=== PATIENT | female | born 1965 | race Caucasian/White ===

== ENCOUNTER 2017-01-01 16:25 | Emergency (ER) | payer SELFPAY ==
--- NOTE | 2017-01-01 16:53 | ER Document Report ---
ED General <BONY AMBRIZ - Last Filed: 01/01/17 23:18> - General Mode of Arrival: Medic Information source: Patient <CUBAMOHIT MANRIQUEZANDA - Last Filed: 02/18/17 10:14> - General Chief Complaint: General Weakness Stated Complaint: WEAKNESS Time Seen by Provider: 01/01/17 16:37 Notes: Patient is a 51-year-old female with a history of diabetes, hypertension, COPD, high cholesterol who presents to the ER today for "3 weeks" weakness. Patient states that she does not have any teeth that she cannot eat. She does state that she has been drinking Ensure and Gatorade, but does not drink a lot of it because she "does not like it." Patient does not have insurance and cannot get in with a dentist to get dentures. She denies any fever, chills nausea, vomiting, abdominal pain, chest pain, shortness of breath, wheezing. She denies any history of heart attack or stroke. He does have a primary care provider that prescribes her medications. She does admit to some diarrhea,"off and on." (SHANNON LABOY) - Related Data Allergies/Adverse Reactions: Penicillins Allergy (Unknown, Verified 01/01/17 20:01) Past Medical History - General Information source: Patient - Social History Smoking Status: Former Smoker Family History: Reviewed & Not Pertinent <SHANNON LABOY - Last Filed: 02/18/17 10:14> Review of Systems - Review of Systems Constitutional: See HPI EENT: No symptoms reported Cardiovascular: See HPI Respiratory: See HPI Gastrointestinal: No symptoms reported Genitourinary: No symptoms reported Female Genitourinary: No symptoms reported Musculoskeletal: No symptoms reported Skin: No symptoms reported Hematologic/Lymphatic: No symptoms reported Neurological/Psychological: No symptoms reported <SHANNON LABOY - Last Filed: 02/18/17 10:14> Physical Exam <BONY AMBRIZ - Last Filed: 01/01/17 23:18> <SHANNON LABOY - Last Filed: 02/18/17 10:14> - Vital signs Vitals: Pulse Ox 100 01/01/17 16:35 - Notes Notes: PHYSICAL EXAMINATION: GENERAL: Chronically ill-appearing, but in no acute distress. HEAD: Atraumatic, normocephalic. EYES: Pupils equal round and reactive to light, extraocular movements intact, sclera anicteric, conjunctiva are normal. ENT: ear canals without erythema or foreign body, TMs pearly landry with good bony landmarks, nares patent, oropharynx clear without exudates. Moist mucous membranes. NECK: Normal range of motion, supple without lymphadenopathy LUNGS: CTAB and equal. No wheezes rales or rhonchi. HEART: Regular rate and rhythm without murmurs ABDOMEN: Soft, no tenderness. No guarding, no rebound BACK: no vertebral tenderness, normal ROM GI/: no CVA tenderness EXTREMITIES: Normal range of motion, no pitting edema. No cyanosis. NEUROLOGICAL: Cranial nerves grossly intact. Normal sensory/motor exams. PSYCH: Normal mood, normal affect. SKIN: Warm, Dry, normal turgor, no rashes or lesions noted (SHANNON LABOY) Course - Laboratory Result Diagrams: 01/01/17 16:55 01/01/17 19:53 <BONY AMBRIZ - Last Filed: 01/01/17 23:18> - Laboratory Result Diagrams: 01/01/17 16:55 01/01/17 19:53 <SHANNON LABOY - Last Filed: 02/18/17 10:14> - Re-evaluation Re-evalutation: 01/01/17 On repeat chemistry sodium improved, bicarbonate improved. Urinalysis obtained and is completely unremarkable. Patient has only borderline tachycardia now, significantly improved. Patient was able to get up, she is still mildly unsteady on her feet, however this is not new for her. Patient actually gets around in a modified wheelchair at home the majority of the time. I did speak to and patient at length. states concerns of recent decline with increased weakness, decreased eating, and overall increased amount of care needed. Patient is never alone, either states her sister, brother, or . They state that they are prepared to go home but may need some assistance and direction on how to better care for the patient. cytology laboratory manager consult was placed. They state satisfaction with this plan. Patient is very eager to go home. She denies any current complaints. She states she feels good now. Discussed return precautions, patient and state understanding and agreement. (BONY AMBRIZ) 01/01/17 19:09 Patient has a mildly elevated white blood cell count, 13.3, patient's sodium is low, 125, I have no labs to compare this with. Patient was very tachycardic when EMS picked her up, up 238 bpm, she has come down to 104 bpm here with 2 L of fluids. 1 L of fluid, the third, is still going and then after that we will redraw to check her sodium. Care has been handed over to Bony Ambriz PA-C to follow up on that and discharge her home if that has increased as discussed with Dr. Iqbal. She has Been given information for the free dental clinic in [facility] and states that she will go there. 01/01/17 19:10 (SHANNON LABOY) - Vital Signs Vital signs: Temp Pulse Resp BP Pulse Ox 98.6 F 12 138/77 H 100 01/01/17 16:49 01/01/17 21:01 01/01/17 21:01 01/01/17 21:01 - Laboratory Laboratory results interpreted by me: 01/01/17 01/01/17 01/01/17 16:55 16:55 19:53 WBC 13.3 H RBC 3.33 L Hgb 10.6 L Hct 32.8 L MCV 98 H RDW 14.6 H Seg Neutrophils % 81.7 H Lymphocytes % 10.7 L Absolute Neutrophils 10.9 H Sodium 125.4 L 131.6 L Chloride 97 L Carbon Dioxide 20 L 21 L Creatinine 0.50 L 0.47 L Glucose 203 H 124 H Calcium 8.0 L 8.2 L AST 13 L Alkaline Phosphatase 133 H 139 H Creatine Kinase 25 L Total Protein 5.4 L 5.8 L Albumin 2.8 L 3.0 L Urine Glucose (UA) 01/01/17 20:12 WBC RBC Hgb Hct MCV RDW Seg Neutrophils % Lymphocytes % Absolute Neutrophils Sodium Chloride Carbon Dioxide Creatinine Glucose Calcium AST Alkaline Phosphatase Creatine Kinase Total Protein Albumin Urine Glucose (UA) 50 H Discharge <BONY AMBRIZ - Last Filed: 01/01/17 23:18> <SHANNON LABOY - Last Filed: 02/18/17 10:14> - Discharge Clinical Impression: Malnourished, Poor dentition, Hyponatremia Condition: Stable Disposition: HOME, SELF-CARE Additional Instructions: Hyponatremia has been treated here tonight. Follow up with Primary care for additional monitoring of this. No other concerning abnormalities were found tonight. We have a keycase assembler consult placed - you will be contacted to assess needs to improve status at home or discuss other options. Return to the ED for any concerning or worsening symptoms.
[2017-01-01 17:10] LABS: ABSOLUTE EOSINOPHILS # (AUTO) 0.1 10^3/uL (0.0-0.6); ABSOLUTE LYMPHOCYTES (AUTO) 1.4 10^3/uL (0.5-4.7); ABSOLUTE MONOCYTES (AUTO) 0.9 10^3/uL (0.1-1.4); ABSOLUTE NEUT (AUTO) 10.9 10^3/uL (1.7-8.2); BASOPHILS % (AUTO) 0.3 % (0-2); EOSINOPHILS % (AUTO) 0.6 % (0-6); HEMATOCRIT 32.8 % (36.0-47.0); HEMOGLOBIN 10.6 g/dL (12.0-15.5); LYMPHOCYTES % (AUTO) 10.7 % (13-45); MEAN CORPUSCULAR HEMOGLOBIN 31.9 pg (27.0-33.4); MEAN CORPUSCULAR HGB CONC 32.4 g/dL (32.0-36.0); MEAN CORPUSCULAR VOLUME 98 fl (80-97); MONOCYTES % (AUTO) 6.7 % (3-13); RED BLOOD COUNT 3.33 10^6/uL (3.72-5.28); RED CELL DISTRIBUTION WIDTH 14.6 % (11.5-14.0); SEGMENTED NEUTROPHILS % (AUTO) 81.7 % (42-78); WHITE BLOOD COUNT 13.3 10^3/uL (4.0-10.5)
[2017-01-01 17:32] LABS: ALANINE AMINOTRANSFERASE 29 U/L (9-52); ALBUMIN 2.8 g/dL (3.5-5.0); ALKALINE PHOSPHATASE 133 U/L (38-126); ANION GAP 8 (5-19); ASPARTATE AMINO TRANSFERASE 13 U/L (14-36); BILIRUBIN,DIRECT 0.2 mg/dL (0.0-0.4); BILIRUBIN,TOTAL 0.2 mg/dL (0.2-1.3); BLOOD UREA NITROGEN 11 mg/dL (7-20); CARBON DIOXIDE 20 mmol/L (22-30); CHLORIDE 97 mmol/L (98-107); CREATINE KINASE 25 U/L (30-135); GLUCOSE 203 mg/dL (75-110); POTASSIUM 4.1 mmol/L (3.6-5.0); SODIUM 125.4 mmol/L (137-145); TOTAL PROTEIN 5.4 g/dL (6.3-8.2)
--- NOTE | 2017-01-01 17:37 | RADIOLOGY REPORT (SQ) ---
EXAM DESCRIPTION: CHEST SINGLE VIEW COMPLETED DATE/TIME: 01/01/2017 5:28 pm REASON FOR STUDY: weakness, tachycardia, cough COMPARISON: None. EXAM PARAMETERS: NUMBER OF VIEWS: One view. TECHNIQUE: Single frontal radiographic view of the chest acquired. RADIATION DOSE: NA LIMITATIONS: None. FINDINGS: LUNGS AND PLEURA: No opacities, masses or pneumothorax. No pleural effusion. MEDIASTINUM AND HILAR STRUCTURES: No masses. Contour normal. HEART AND VASCULAR STRUCTURES: Heart normal in size. Normal vasculature. BONES: No acute findings. HARDWARE: None in the chest. OTHER: No other significant finding. IMPRESSION: NO ACUTE RADIOGRAPHIC FINDING IN THE CHEST. TECHNICAL DOCUMENTATION: JOB ID: [id number]
[2017-01-01 17:42] LABS: CREATINE KINASE MB 0.41 ng/mL (<4.55)
[2017-01-01 17:44] LABS: TROPONIN I < 0.012 ng/mL
[2017-01-01] MEDS ORDERED: NORMAL SALINE 1000 ML 1,000 ML IV ONE (17:55)
[2017-01-01 20:21] LABS: ALANINE AMINOTRANSFERASE 28 U/L (9-52); ALKALINE PHOSPHATASE 139 U/L (38-126); ANION GAP 9 (5-19); ASPARTATE AMINO TRANSFERASE 15 U/L (14-36); BILIRUBIN,DIRECT 0.2 mg/dL (0.0-0.4); BILIRUBIN,TOTAL 0.2 mg/dL (0.2-1.3); BLOOD UREA NITROGEN 9 mg/dL (7-20); CALCIUM 8.2 mg/dL (8.4-10.2); CARBON DIOXIDE 21 mmol/L (22-30); CHLORIDE 102 mmol/L (98-107); CREATININE RESULT 0.47 mg/dL (0.52-1.25); GLUCOSE 124 mg/dL (75-110); POTASSIUM 4.1 mmol/L (3.6-5.0); SODIUM 131.6 mmol/L (137-145); TOTAL PROTEIN 5.8 g/dL (6.3-8.2)
--- NOTE | 2017-01-01 20:25 | EKG REPORT ---
SEVERITY:- OTHERWISE NORMAL ECG - SINUS TACHYCARDIA : Confirmed by: Brendon Mazariegos MD 01-Jan-2017 20:24:24
[2017-01-01 20:27] LABS: APPEARANCE,URINE CLEAR; BILIRUBIN,URINE NEGATIVE (NEGATIVE); GLUCOSE, URINE 50 mg/dL (NEGATIVE); KETONES,URINE NEGATIVE (NEGATIVE); LEUKOCYTE ESTERASE,URINE NEGATIVE (NEGATIVE); NITRITE,URINE NEGATIVE (NEGATIVE); PROTEIN,URINE NEGATIVE (NEGATIVE); URINE SPECIFIC GRAVITY 1.002; UROBILINOGEN,URINE NEGATIVE mg/dL (<2.0)
[2017-01-01 20:41] LABS: URINE BARBITURATES SCREEN NEGATIVE; URINE METHADONE SCREEN NEGATIVE; URINE OPIATES LOW NEGATIVE; URINE PHENCYCLIDINE SCREEN NEGATIVE
[2017-01-01 21:18] VITALS: BP 138/77
== END 2017-01-01 21:18 | disposition home or self-care (01) ==
LOC: ER 16:25
DX: E46 Unspecified protein-calorie malnutrition (principal); K08.9 Disorder of teeth and supporting structures, unspecified; E87.1 Hypo-osmolality and hyponatremia; R00.0 Tachycardia, unspecified; R19.7 Diarrhea, unspecified; R53.1 Weakness; E11.9 Type 2 diabetes mellitus without complications; I10 Essential (primary) hypertension; J44.9 Chronic obstructive pulmonary disease, unspecified; E78.00 Pure hypercholesterolemia, unspecified; Z88.0 Allergy status to penicillin; Z87.891 Personal history of nicotine dependence
CPT/HCPCS: 93005; 99285; 96360; 51701; 36415; 82553; 82550; 85025; 80053; 81001; 84484; 80307; 71010; 93010; J7030

== ENCOUNTER 2017-01-10 16:01 | Emergency (ER) | payer SELFPAY ==
--- NOTE | 2017-01-10 17:13 | ER Document Report ---
ED Seizure - General Chief Complaint: Seizure Stated Complaint: POSSIBLE SEIZURE Time Seen by Provider: 01/10/17 17:12 Mode of Arrival: Medic Information source: Patient TRAVEL OUTSIDE OF THE [place] IN LAST 30 DAYS: No - HPI Patient complains to provider of: Other - HAS BEEN HAVING "CONVULSIONS" INFREQUENTLY FOR LAST 3 MONTHS, INCREASING IN FREQUENCY, HAD 3 EPISODES TODAY. Quality of pain: No pain Continued on arrival to ED: No Can details of seizure be obtained/verified: Yes Episode witnessed (by whom): Yes - SISTER Preceding symptoms/context: denies: Recent illness/fever, Recent alcohol intake , Recent drug use, Sleep deprivation, Missed dose of meds, Changed meds or dosage, Somnolence History of: denies: Brain tumor or mets, CVA, Hydrocephalus, Migraines, TBI, V/ P shunt Character of seizure: Partial loss/conscious, Generalized shaking. No: Incontinent stool, Incontinent bladder Post-ictal symptoms: None Injuries: None Associated Symptoms: None - Related Data Allergies/Adverse Reactions: Penicillins Allergy (Unknown, Verified 01/01/17 20:01) Past Medical History - General Information source: Patient, Relative - Social History Smoking Status: Unknown if Ever Smoked Frequency of alcohol use: None Drug Abuse: None Lives with: Family Family History: Reviewed & Not Pertinent Patient has suicidal ideation: No Patient has homicidal ideation: No - Past Medical History Cardiac Medical History: Reports: Hx Hypercholesterolemia, Hx Hypertension Pulmonary Medical History: Reports: None EENT Medical History: Reports: None Neurological Medical History: Reports: None Endocrine Medical History: Reports: Hx Diabetes Mellitus Type 1 Renal/ Medical History: Reports: None Malignancy Medical History: Reports: None GI Medical History: Reports: None Musculoskeltal Medical History: Reports None Psychiatric Medical History: Reports: None Traumatic Medical History: Reports: None Past Surgical History: Reports: Hx Hysterectomy Review of Systems - Review of Systems Constitutional: Weakness EENT: No symptoms reported Cardiovascular: No symptoms reported Respiratory: No symptoms reported Gastrointestinal: No symptoms reported Genitourinary: No symptoms reported Musculoskeletal: See HPI Skin: No symptoms reported Neurological/Psychological: See HPI, Tingling - IN BOTH HANDS Physical Exam - Vital signs Vitals: Resp Pulse Ox 16 98 01/10/17 16:15 01/10/17 16:15 Interpretation: Tachycardic. No: Hypotensive, Tachypneic, Febrile - General General appearance: Appears well, Alert In distress: None - HEENT Head: Normocephalic Eyes: Normal Conjunctiva: Normal Ears: Normal Nasal: Normal Mouth/Lips: Other - VERY POOR DENTITION Mucous membranes: Normal Pharynx: Normal Neck: Normal, Supple - Respiratory Respiratory status: No respiratory distress Breath sounds: Normal - Cardiovascular Rhythm: Regular, Tachycardia Heart sounds: Normal auscultation Murmur: No - Abdominal Inspection: Normal Distension: No distension Bowel sounds: Normal Tenderness: Nontender - Back Back: Normal, Nontender - Extremities General upper extremity: Normal inspection General lower extremity: Normal inspection - Neurological Neuro grossly intact: Yes Cognition: Normal Orientation: AAOx4 - Psychological Associated symptoms: Normal affect, Normal mood - Skin Skin Temperature: Warm Skin Moisture: Dry Skin Color: Normal Skin Turgor: Elastic Course - Vital Signs Vital signs: Temp Pulse Resp BP Pulse Ox 98.2 F 14 142/87 H 99 01/10/17 16:23 01/10/17 19:01 01/10/17 19:01 01/10/17 19:01 - Laboratory Result Diagrams: 01/10/17 16:15 01/10/17 16:15 Laboratory results interpreted by me: 01/10/17 01/10/17 16:15 16:15 WBC 11.2 H RBC 3.65 L Hgb 11.8 L Hct 35.1 L RDW 14.6 H Plt Count 462 H Absolute Neutrophils 8.5 H Sodium 130.4 L Chloride 96 L Glucose 186 H Alkaline Phosphatase 127 H Total Protein 5.7 L Albumin 3.0 L Discharge - Discharge Clinical Impression: Seizure Diabetes type 2, controlled Qualifiers: Diabetes mellitus complication status: without complication Diabetes mellitus fpc insulin use: without fpc use Qualified Code(s): E11.9 - Type 2 diabetes mellitus without complications Diabetic neuropathy Qualifiers: Diabetes mellitus type: type 2 Diabetes mellitus complication detail: diabetic polyneuropathy Qualified Code(s): E11.42 - Type 2 diabetes mellitus with diabetic polyneuropathy Condition: Stable Disposition: ADMITTED INPATIENT Instructions: New Seizure ([facility]), Neuropathy ([facility]) Additional Instructions: CONTINUE YOUR USUAL MEDICATIONS. FOLLOW UP WITH YOUR PRIMARY CARE PROVIDER, CALL OFFICE TOMORROW FOR APPOINTMENT. YOU MAY NEED AN E.E.G. TEST TO DETERMINE IF YOU NEED MEDICATION TO PREVENT SEIZURES. RETURN TO E.R. IF YOU GET WORSE OR IF NEW PROBLEMS ARISE.
[2017-01-10 17:55] LABS: ABSOLUTE BASOPHILS # (AUTO) 0.1 10^3/uL (0.0-0.2); ABSOLUTE EOSINOPHILS # (AUTO) 0.1 10^3/uL (0.0-0.6); ABSOLUTE LYMPHOCYTES (AUTO) 1.6 10^3/uL (0.5-4.7); ABSOLUTE MONOCYTES (AUTO) 0.9 10^3/uL (0.1-1.4); ABSOLUTE NEUT (AUTO) 8.5 10^3/uL (1.7-8.2); BASOPHILS % (AUTO) 0.6 % (0-2); EOSINOPHILS % (AUTO) 0.8 % (0-6); HEMATOCRIT 35.1 % (36.0-47.0); HEMOGLOBIN 11.8 g/dL (12.0-15.5); HGB HCT DIFFERENCE 0.3; LYMPHOCYTES % (AUTO) 14.6 % (13-45); MEAN CORPUSCULAR HEMOGLOBIN 32.4 pg (27.0-33.4); MEAN CORPUSCULAR HGB CONC 33.6 g/dL (32.0-36.0); MEAN CORPUSCULAR VOLUME 96 fl (80-97); MONOCYTES % (AUTO) 8.2 % (3-13); RED BLOOD COUNT 3.65 10^6/uL (3.72-5.28); RED CELL DISTRIBUTION WIDTH 14.6 % (11.5-14.0); SEGMENTED NEUTROPHILS % (AUTO) 75.8 % (42-78); WHITE BLOOD COUNT 11.2 10^3/uL (4.0-10.5)
[2017-01-10 18:02] LABS: ALANINE AMINOTRANSFERASE 24 U/L (9-52); ALKALINE PHOSPHATASE 127 U/L (38-126); ANION GAP 11 (5-19); ASPARTATE AMINO TRANSFERASE 17 U/L (14-36); BILIRUBIN,DIRECT 0.3 mg/dL (0.0-0.4); BILIRUBIN,TOTAL 0.3 mg/dL (0.2-1.3); BLOOD UREA NITROGEN 13 mg/dL (7-20); CALCIUM 9.2 mg/dL (8.4-10.2); CARBON DIOXIDE 23 mmol/L (22-30); CHLORIDE 96 mmol/L (98-107); CREATININE RESULT 0.67 mg/dL (0.52-1.25); GLUCOSE 186 mg/dL (75-110); POTASSIUM 4.3 mmol/L (3.6-5.0); SODIUM 130.4 mmol/L (137-145); TOTAL PROTEIN 5.7 g/dL (6.3-8.2)
--- NOTE | 2017-01-10 19:23 | RADIOLOGY REPORT (SQ) ---
EXAM DESCRIPTION: CT HEAD WITHOUT COMPLETED DATE/TIME: 01/10/2017 7:10 pm REASON FOR STUDY: RECURRENT SEIZURE ACTIVITY COMPARISON: None. TECHNIQUE: Axial images acquired through the brain without intravenous contrast. Images reviewed wi th bone, brain and subdural windows. Images stored on PACS. All CT scanners at this facility use dose modulation, iterative reconstruction, and/or weight based d osing when appropriate to reduce radiation dose to as low as reasonably achievable (ALARA). [facility]: Dose Right [facility]: CareDose [facility]: Dose Right [facility]: Teradose 4D [facility]: Smart Hum RADIATION DOSE: Up-to-date CT equipment and radiation dose reduction techniques were employed. CTDIv ol: 64.6 mGy. DLP: 1163 mGy-cm. mGy. LIMITATIONS: None. FINDINGS: VENTRICLES: Normal size and contour. CEREBRUM: No masses. No hemorrhage. No midline shift. Normal williamson/white matter differentiation. N o evidence for acute infarction. CEREBELLUM: No masses. No hemorrhage. No alteration of density. No evidence for acute infarction. EXTRAAXIAL SPACES: No fluid collections. No masses. ORBITS AND GLOBE: No intra- or extraconal masses. Normal contour of globe without masses. CALVARIUM: No fracture. PARANASAL SINUSES: No fluid or mucosal thickening. SOFT TISSUES: No mass or hematoma. OTHER: No other significant finding. IMPRESSION: NORMAL BRAIN CT WITHOUT CONTRAST. TECHNICAL DOCUMENTATION: JOB ID: [id number] Quality ID # [id number]: Final reports with documentation of one or more dose reduction techniques (e.g., Au tomated exposure control, adjustment of the mA and/or kV according to patient size, use of iterative reconstruction technique) 2010 [employer]- All Rights Reserved
[2017-01-10 21:24] LABS: APPEARANCE,URINE CLEAR; BILIRUBIN,URINE NEGATIVE (NEGATIVE); GLUCOSE, URINE NEGATIVE (NEGATIVE); KETONES,URINE NEGATIVE (NEGATIVE); LEUKOCYTE ESTERASE,URINE NEGATIVE (NEGATIVE); NITRITE,URINE NEGATIVE (NEGATIVE); PROTEIN,URINE NEGATIVE (NEGATIVE); URINE SPECIFIC GRAVITY 1.004; UROBILINOGEN,URINE NEGATIVE mg/dL (<2.0)
[2017-01-10 22:50] VITALS: BP 135/91
== END 2017-01-10 22:58 | disposition home or self-care (01) ==
LOC: ER 16:01
DX: R56.9 Unspecified convulsions (principal); E11.42 Type 2 diabetes mellitus with diabetic polyneuropathy; R00.0 Tachycardia, unspecified
CPT/HCPCS: 36415; 70450; 80053; 81001; 82553; 85025; 99284